=== PATIENT | female | born 1955 | race Asian ===

== ENCOUNTER 2017-03-29 14:13 | Outpatient (CLI) | payer OTHER | END 2017-03-29 14:14 | disposition home or self-care (01) | DX: R07.81 Pleurodynia (principal) ==

== ENCOUNTER 2018-06-27 14:24 | Outpatient (CLI) | payer BC, OTHER ==
--- NOTE | 2018-06-28 17:01 | Mammography Report ---
Procedure Date: 06/27/2018 Accession Number: [id number] / [id number] Procedure: MGN - Screening Mammo Dig Bilat CPT Code: FULL RESULT: EXAM: Screening Mammo Dig Bilat DATE: 06/27/2018 2:44 PM CLINICAL HISTORY: 63-year-old female presents for screening mammogram TECHNIQUE: Bilateral CC and MLO views were obtained. COMPARISON: 02/09/2015, 01/12/2015, 05/09/2011, 12/29/2008. FINDINGS: The breasts demonstrate heterogeneously dense fibroglandular parenchyma bilaterally. No suspicious masses, clustered microcalcifications, or regions of architectural distortion are identified. IMPRESSION: Negative examination RECOMMENDATION: Routine annual screening unless otherwise clinically indicated. BIRADS CATEGORY 1: Negative STANDARD QUALIFYING STATEMENTS: 1. This examination was reviewed with the aid of Computer-Aided Detection (CAD). 2. A negative or benign imaging report should not delay biopsy if clinically suspicious findings are present. Consider surgical consultation if warrented. More than 5% of cancers are not identified by imaging. 3. Dense breasts may obscure an underlying neoplasm.
== END 2018-06-27 14:25 | disposition home or self-care (01) ==
LOC: DI.N 14:24
PROVIDERS: ATTEND Internal Medicine
DX: Z12.31 Encounter for screening mammogram for malignant neoplasm of breast (principal)
CPT/HCPCS: 77067

== ENCOUNTER 2019-01-25 14:57 | Outpatient (CLI) | payer BC, OTHER ==
--- NOTE | 2019-01-27 08:19 | Ultrasound Report ---
Reason: LUMP POSSIBLE LIPOMA Procedure Date: 01/25/2019 Accession Number: [id number] / [id number] Procedure: US - Ext Limited Non Vascular CPT Code: FULL RESULT: EXAM: RIGHT/LEFT UPPER EXTREMITY ULTRASOUND - LIMITED EXAM DATE: 01/25/2019 03:32 PM. CLINICAL HISTORY: Lump, possible lipoma. COMPARISON: None. TECHNIQUE: Real-time scanning was performed with static images obtained. FINDINGS: There is a mixed iso- and hyperechoic mass of the lateral right upper arm, which appears to be deep to the muscular fascia and measures 4 x 13 x 27 mm. The mass is avascular. Its exact relationship with the underlying deltoid musculature is not well demonstrated by US. Per patient history, the mass has been present for 3 months and is painful with motion. IMPRESSION: 1. Nonspecific soft tissue mass of the upper arm, which does not have typical sonographic features of lipoma. Focal muscular herniation through a defect in the fascia is possible. Consider definitive imaging with cross-sectional imaging, either CT or MRI. [facility]
== END 2019-01-25 14:58 | disposition home or self-care (01) ==
LOC: DI 14:57
PROVIDERS: ATTEND Internal Medicine
DX: R22.31 Localized swelling, mass and lump, right upper limb (principal)
CPT/HCPCS: 76882

== ENCOUNTER 2019-02-18 10:57 | Outpatient (CLI) | payer BC, OTHER ==
[2019-02-18 11:20] LABS: CREATININE 0.5 mg/dL (0.4-1.0)
[2019-02-18] MEDS ORDERED: IOPAMIDOL-300 100 ML VIAL ONE (11:35)
[2019-02-18] MEDS ORDERED: IOPAMIDOL-300 100 ML VIAL IVP ONE (12:47)
--- NOTE | 2019-02-19 09:07 | CT Report ---
Reason: MASS Procedure Date: 02/18/2019 Accession Number: [id number] / [id number] Procedure: CT - UPPER EXTREMITY W - RT CPT Code: FULL RESULT: EXAM: RIGHT UPPER EXTREMITY CT WITH CONTRAST EXAM DATE: 02/18/2019 11:59 AM. CLINICAL HISTORY: Mass. COMPARISON: None. TECHNIQUE: Thin-section axial images were acquired of the upper extremity from the acromion to the midhumerus after administration of intravenous contrast. IV contrast: 100 mL Isovue 300, no reaction. Post-processing: Coronal and sagittal reformats. Other: None. In accordance with CT protocol optimization, one or more of the following dose reduction techniques were utilized for this exam: automated exposure control, adjustment of mA and/or KV based on patient size, or use of iterative reconstructive technique. FINDINGS: Bones: No fracture or bone lesion. Joints: The visualized joint spaces are normal. AC joint and glenohumeral joint appear unremarkable. Musculature: The focal area of concern marked with an MRI marker is located in the central third of the deltoid and is primarily fatty density. There is a slip of deltoid musculature which appears to be surrounded by fatty density. No enhancement. No other worrisome imaging features in this location. No calcifications. Other: No abscess or cellulitis. The other visualized soft tissues are unremarkable. IMPRESSION: 1. Focal area of concern is most likely a benign lipoma which surrounds a slip of deltoid muscle located in the middle third of the deltoid. 2. No worrisome imaging features otherwise. RADIA
== END 2019-02-18 10:58 | disposition home or self-care (01) ==
LOC: DI 10:57
PROVIDERS: ATTEND Internal Medicine
DX: R22.9 Localized swelling, mass and lump, unspecified (principal)
CPT/HCPCS: 36415; 73201; 82565; Q9967

== ENCOUNTER 2022-05-18 08:00 | Outpatient (CLI) | payer BC, OTHER ==
[2022-05-18 15:54] LABS: BASOPHILS % (AUTO) 0.7 %; EOSINOPHILS # (AUTO) 0.2 10^3/uL (0.0-0.7); HCT - HEMATOCRIT 40.3 % (37.0-47.0); HGB - HEMOGLOBIN 13.3 g/dL (12.0-16.0); LYMPHOCYTES # (AUTO) 2.1 10^3/uL (1.5-3.5); LYMPHOCYTES % (AUTO) 35.2 %; MEAN CORPUSCULAR HEMOGLOBIN 30.1 pg (27.0-31.0); MEAN CORPUSCULAR VOLUME 91.2 fL (81.0-99.0); MEAN PLATELET VOLUME 10.7 fL (7.9-10.8); MONOCYTES # (AUTO) 0.3 10^3/uL (0.0-1.0); MONOCYTES % (AUTO) 5.6 %; NEUTROPHILS # (AUTO) 3.3 10^3/uL (1.5-6.6); NEUTROPHILS % (AUTO) 55.3 %; PLT - PLATELET COUNT 249 10^3/uL (130-450); RED BLOOD COUNT 4.42 10^6/uL (4.20-5.40); RED CELL DISTRIBUTION WIDTH 13.2 % (12.0-15.0); WHITE BLOOD COUNT 5.9 x10^3/uL (4.8-10.8)
[2022-05-18 16:16] LABS: ALBUMIN/GLOBULIN RATIO 1.1 (1.0-2.2); ALKALINE PHOSPHATASE 50 IU/L (42-121); ALT ALANINE AMINOTRANSFERASE 18 IU/L (10-60); AST ASPARTATE AMINOTRANSFERASE 20 IU/L (10-42); BILIRUBIN,TOTAL 0.4 mg/dL (0.2-1.0); BUN - BLOOD UREA NITROGEN 15 mg/dL (6-20); CARBON DIOXIDE - CO2 27 mmol/L (21-32); CHLORIDE 101 mmol/L (101-111); CHOL/HDL RATIO 3.7 (<4.4); CHOLESTEROL 221 mg/dL; CREATININE 0.6 mg/dL (0.4-1.0); GFR - MDRD 100 (>89); GLUCOSE 97 mg/dL (70-100); HDL CHOLESTEROL 60 mg/dL; LDL CHOLESTEROL,CALCULATED 131 mg/dL; LDL/HDL RATIO 2.2 (<4.4); POTASSIUM 3.9 mmol/L (3.5-5.0); SODIUM 138 mmol/L (135-145); TOTAL PROTEIN 7.5 g/dL (6.7-8.2); TRIGLYCERIDES 148 mg/dL; VLDL CHOLESTEROL 30 mg/dL
[2022-05-18 20:29] LABS: ESTIMATED AVERAGE GLUCOSE 137 mg/dL (70-100); HEMOGLOBIN A1c% 6.4 % (4.27-6.07)
== END 2022-05-18 23:59 | disposition home or self-care (01) ==
LOC: LAB.R 08:00
PROVIDERS: ATTEND Internal Medicine
DX: Z00.00 Encounter for general adult medical examination without abnormal findings (principal); D64.9 Anemia, unspecified; R73.01 Impaired fasting glucose; M81.0 Age-related osteoporosis without current pathological fracture; L40.9 Psoriasis, unspecified
CPT/HCPCS: 80053; 80061; 82306; 83036; 83721; 84443; 85025

== ENCOUNTER 2023-06-26 14:22 | Outpatient (CLI) | payer OTHER, MEDICARE ==
--- NOTE | 2023-06-27 10:13 | Mammography Report ---
BILATERAL DIGITAL SCREENING MAMMOGRAM 3D/2D: 06/26/2023 CLINICAL: Routine screening. Comparison is made to exams dated: 06/27/2018 mammogram, 01/12/2015 mammogram, and 05/09/2011 mammogram - [facility]. There are scattered areas of fibroglandular density in both breasts (category b / 25%-50% glandular t issue). No significant masses, calcifications, or other findings are seen in either breast. There has been no significant interval change. IMPRESSION: NEGATIVE There is no mammographic evidence of malignancy. A 1 year screening mammogram is recommended. Based on the Tyrer Cuzick model (a risk assessment model) the patients lifetime risk is 6.7% and her 10 year risk is 3.5%. According to the ACR, ACS, and NCCN guidelines, an annual breast MRI exam claribel g with mammogram is recommended if the patients lifetime risk is 20% or greater. This exam was interpreted at Station ID: [id number]. NOTE: For mammograms, a report in lay terms will be sent to the patient. Approximately 15% of breast malignancies will not be visualized mammographically. In the management of a palpable breast mass, a negative mammogram must not discourage biopsy of a clinically suspicious lesion. Electronically Signed By: Gosia diaz/julian:06/26/2023 17:10:36 letter sent: No_Letter ACR BI-RADS Category 1: Negative 3341F PARENCHYMAL PATTERN: (A) - The breast(s) demonstrate(s) scattered fibroglandular densities. BI-RADS CATEGORY: (1) - 1 Mammogram [id number] 1 year screening LATERALITY: (B)
== END 2023-06-26 14:23 | disposition home or self-care (01) ==
LOC: DI.N 14:22
PROVIDERS: ATTEND Internal Medicine
DX: Z12.31 Encounter for screening mammogram for malignant neoplasm of breast (principal)

== ENCOUNTER 2024-04-09 14:19 | Outpatient (CLI) | payer OTHER, MEDICARE ==
--- NOTE | 2024-04-10 11:21 | XRAY Report ---
PROCEDURE: Hand 3+V RT INDICATIONS: ARTHRALGIA TECHNIQUE: 3 views of the hand(s) acquired. COMPARISON: None. FINDINGS: Bones: No fractures or dislocations. No suspicious bony lesions. Osteoarthritic changes, most prono unced in the triscaphe joint, first carpal metacarpal joint, first and fifth metacarpal phalangeal magdalena int and multiple interphalangeal joints. Soft tissues: No suspicious soft tissue calcifications or masses. IMPRESSION: 1. Moderate osteoarthritis. Reviewed by: Verenice Quiroz MD on 04/10/2024 11:19 AM PDT Approved by: Verenice Quiroz MD on 04/10/2024 11:19 AM PDT Station ID: [id number]
== END 2024-04-09 14:20 | disposition home or self-care (01) ==
LOC: DI 14:19
PROVIDERS: ATTEND Internal Medicine
DX: M18.11 Unilateral primary osteoarthritis of first carpometacarpal joint, right hand (principal); M19.041 Primary osteoarthritis, right hand